=== PATIENT | female | born 1955 | race Caucasian/White ===

== ENCOUNTER 2020-05-06 11:40 | Observation (INO) ==
[2020-05-06] MEDS ORDERED: Ondansetron 4 MG/2 ML VIAL IVP ONE (11:56)
[2020-05-06 12:17] LABS: Basophils % 0.3 %; Eosinophils # 0.1 K/mcL (0.0-0.6); Eosinophils % 1.1 %; Hematocrit 40.3 % (35.3-44.9); Hemoglobin 12.7 g/dL (11.5-15.4); Immature Granulocytes % 0.3 % (0-4); Lymphocytes # 0.8 K/mcL (0.6-4.6); Lymphocytes % 10.8 %; Mean Corpuscular HGB Conc 31.5 g/dL (31.6-35.5); Mean Corpuscular Hemoglobin 28.5 pg (28.0-33.3); Mean Corpuscular Volume 90.4 fL (83.0-100.0); Monocytes # 0.4 K/mcL (0.0-1.3); Monocytes % 5.3 %; Neutrophils # 6.2 K/mcL (1.6-8.9); Platelet Count 220 K/mcL (140-400); Red Blood Count 4.46 M/mcL (3.82-4.97); Red Cell Distribution Width 12.9 % (11.5-14.5); Segmented Neutrophils % 82.2 %; White Blood Count 7.5 K/mcL (4.3-11.1)
[2020-05-06 12:26] LABS: INR 1.2; Prothrombin Time 13.3 Seconds (9.4-12.1)
[2020-05-06 12:29] LABS: Activated Partial Thrombo Time 30.5 Seconds (26.0-36.0)
[2020-05-06 12:37] LABS: BUN/Creatinine Ratio 17 (6-26); Blood Urea Nitrogen 20 mg/dL (8-23); Calcium 8.6 mg/dL (8.6-10.3); Carbon Dioxide 25 mEq/L (23-29); Chloride 103 mEq/L (98-107); Glucose 118 mg/dL (70-105); Lipase 7 Units/L (11-82); Osmolality,Calculated 288 (280-300); Potassium 3.7 mEq/L (3.5-5.1); Sodium 137 mEq/L (136-145); Troponin I < 0.03 ng/mL (< 0.04); eGFR For African Americans 56 (> 60); eGFR For Non-African Americans 46 (> 60)
[2020-05-06 13:12] LABS: Alanine Aminotransferase 13 Units/L (7-52); Albumin 4.3 g/dL (3.5-5.7); Albumin/Globulin Ratio 1.9 (1.1-2.2); Alkaline Phosphatase 87 Units/L (34-104); Aspartate Amino Transferase 23 Units/L (13-39); Bilirubin,Direct 0.1 mg/dL (0.0-0.2); Bilirubin,Indirect 0.6 mg/dL (0.0-1.0); Bilirubin,Total 0.7 mg/dL (0.3-1.0); Globulin 2.3 g/dL (2.4-3.5); Total Protein 6.6 g/dL (6.4-8.9)
[2020-05-06] MEDS ORDERED: Isovue-370 500 ML BOTTLE IVP ONE (13:16)
[2020-05-06] MEDS ORDERED: *HR* OxyCODONE Immed Rel 5 MG TABLET PO ONE (14:01)
[2020-05-06] MEDS ORDERED: 0.9 % Sodium Chloride 1,000 ML IVC ONE (15:01)
[2020-05-06] MEDS ORDERED: Prochlorperazine 10 MG/2 ML VIAL IVP PRN (17:12)
[2020-05-06] MEDS ORDERED: Perflutren Lipid Microsphere 1.3 ML in 0.9 % Sodium Chloride 8.7 ML IVP PRN (17:40)
[2020-05-06] MEDS ORDERED: Ondansetron 4 MG/2 ML VIAL IVP PRN (17:46)
[2020-05-06] MEDS ORDERED: Naloxone 0.4 MG/ML INJ IVP PRN (17:48)
[2020-05-06] MEDS ORDERED: 0.9 % Sodium Chloride 1,000 ML IVC SCH (18:45)
[2020-05-06] MEDS: *HR* Heparin 5,000 UNIT/ML VIAL SQ SCH (22:07)
[2020-05-07 01:06] LABS: Hematocrit 36.4 % (35.3-44.9); Hemoglobin 11.6 g/dL (11.5-15.4); Mean Corpuscular HGB Conc 31.9 g/dL (31.6-35.5); Mean Platelet Volume 11.2 fL (9.4-12.4); Platelet Count 204 K/mcL (140-400); Red Cell Distribution Width 12.9 % (11.5-14.5); White Blood Count 4.5 K/mcL (4.3-11.1)
[2020-05-07 01:24] LABS: % Iron Saturation 22 % (15-50); Iron 53 mcg/dL (50-170); Transferrin 171 mg/dL (203-362)
[2020-05-07 01:26] LABS: BUN/Creatinine Ratio 15 (6-26); Blood Urea Nitrogen 13 mg/dL (8-23); Calcium 8.2 mg/dL (8.6-10.3); Carbon Dioxide 23 mEq/L (23-29); Chloride 109 mEq/L (98-107); Chol/HDL Ratio 3.9 (0-4.9); Cholesterol 193 mg/dL (< 200); Glucose 88 mg/dL (70-105); HDL Cholesterol 49 mg/dL (40-59); LDL Cholesterol,Calculated 126 mg/dL (< 100); Magnesium 2.1 mg/dL (1.6-2.6); Osmolality,Calculated 292 (280-300); Potassium 3.5 mEq/L (3.5-5.1); Sodium 141 mEq/L (136-145); Triglycerides 89 mg/dL (< 150); eGFR For African Americans > 60 (> 60); eGFR For Non-African Americans > 60 (> 60)
[2020-05-07 01:46] LABS: Estimated Average Glucose 111 mg/dl; Hemoglobin A1C 5.5 %
[2020-05-07 03:09] LABS: Bilirubin,Urine Negative (Negative); Blood,Urine Negative (Negative); Clarity,Urine Clear (Clear); Color,Urine Light-Yellow (Yellow); Glucose,Urine (UA) Normal (Normal); Ketones,Urine 20 mg/dL (Negative); PH,Urine 5.5 pH Units (5.0-8.0); Protein,Urine Negative (Neg-Trace); Specific Gravity,Urine 1.021 (1.010-1.025)
[2020-05-07 03:10] LABS: Leukocyte Esterase,Urine Negative (Negative); Nitrite,Urine Negative (Negative); Urobilinogen,Urine Normal (Normal)
[2020-05-07] MEDS ORDERED: *HR* OxyCODONE Immed Rel 5 MG TABLET PO ONE (03:25)
[2020-05-07] MEDS: *HR* Heparin 5,000 UNIT/ML VIAL SQ SCH ×2 (05:12→15:08)
[2020-05-07] MEDS ORDERED: Regadenoson 0.4 MG/5 ML SYRINGE IVP ONE (06:10)
[2020-05-07] MEDS ORDERED: amLODIPine 5 MG TABLET PO SCH (11:30)
[2020-05-07] MEDS ORDERED: 0.9 % Sodium Chloride 1,000 ML IVC SCH (12:15)
[2020-05-07] MEDS ORDERED: 0.9 % Sodium Chloride 500 ML IVC ONE (12:15)
[2020-05-07] MEDS ORDERED: Isovue-370 500 ML BOTTLE IVP ONE (12:16)
[2020-05-07 13:15] LABS: Adenovirus F 40/41 PCR Not detected (Not detect); Astrovirus PCR Not detected (Not detect); C.difficile Toxin A/B Gene PCR Not detected (Not detect); Campylobacter by PCR Not detected (Not detect); Cryptosporidium by PCR Not detected (Not detect); Cyclospora cayetanensis PCR Not detected (Not detect); E. coli O157 by PCR Not detected (Not detect); Entamoeba histolytica PCR Not detected (Not detect); Enteroaggregative E.coli(EAEC) Not detected (Not detect); Enteropathogenic E.coli(EPEC) Not detected (Not detect); Enterotoxigenic E.coli (ETEC) Not detected (Not detect); Giardia lamblia PCR Not detected (Not detect); Norovirus GI/GII PCR Not detected (Not detect); Plesiomonas shigelloides PCR Not detected (Not detect); Rotavirus A PCR Not detected (Not detect); Salmonella PCR Not detected (Not detect); Sapovirus PCR Not detected (Not detect); Shig/EnteroinvasiveE coli EIEC Not detected (Not detect); Shigalike tox-prod E coli STEC Not detected (Not detect); Vibrio PCR Not detected (Not detect); Vibrio cholerae PCR Not detected (Not detect); Yersinia enterocolitica PCR Not detected (Not detect)
[2020-05-07 14:45] VITALS: BP 148/70
[2020-05-07] MEDS ORDERED: levoFLOXacin 750 MG TABLET PO ONE (15:54)
== END 2020-05-07 18:20 | disposition home or self-care (01) ==
LOC: 3ANU 11:40 → EMEROOARM 11:40 → SUATTDRO 15:51 → 3ANU 16:28
PROVIDERS: ADMIT General Practice; ATTEND Internal Medicine

== ENCOUNTER 2021-06-26 12:07 | Inpatient (IN) ==
[2021-06-26 13:12] LABS: Basophils % 0.4 %; Eosinophils # 0.1 K/mcL (0.0-0.6); Eosinophils % 1.6 %; Hemoglobin 12.5 g/dL (11.5-15.4); Immature Granulocytes % 0.2 % (0-4); Lymphocytes # 1.4 K/mcL (0.6-4.6); Lymphocytes % 28.1 %; Mean Corpuscular HGB Conc 32.1 g/dL (31.6-35.5); Mean Corpuscular Hemoglobin 29.3 pg (28.0-33.3); Mean Corpuscular Volume 91.5 fL (83.0-100.0); Mean Platelet Volume 10.9 fL (9.4-12.4); Monocytes # 0.3 K/mcL (0.0-1.3); Monocytes % 5.4 %; Neutrophils # 3.2 K/mcL (1.6-8.9); Platelet Count 269 K/mcL (140-400); Red Blood Count 4.26 M/mcL (3.82-4.97); Segmented Neutrophils % 64.3 %
[2021-06-26 13:39] LABS: BUN/Creatinine Ratio 18 (6-26); Blood Urea Nitrogen 21 mg/dL (8-23); Calcium 9.4 mg/dL (8.6-10.3); Carbon Dioxide 28 mEq/L (23-29); Chloride 105 mEq/L (98-107); Glucose 93 mg/dL (70-105); Osmolality,Calculated 293 (280-300); Potassium 4.4 mEq/L (3.5-5.1); Sodium 140 mEq/L (136-145); Troponin I < 0.03 ng/mL (< 0.04); eGFR For African Americans 55 (> 60); eGFR For Non-African Americans 45 (> 60)
[2021-06-26] MEDS ORDERED: Naloxone 0.4 MG/ML INJ IVP PRN (14:32)
[2021-06-26] MEDS ORDERED: Ondansetron 4 MG/2 ML VIAL IVP PRN (14:32)
[2021-06-26] MEDS ORDERED: Perflutren Lipid Microsphere 1.3 ML in 0.9 % Sodium Chloride 8.7 ML IVP PRN (14:39)
[2021-06-26] MEDS ORDERED: Albuterol 2.5 MG/3 ML NEBULIZER IH PRN (17:01)
[2021-06-26] MEDS ORDERED: Nitroglycerin 0.4 MG TAB.SUBL SL PRN (17:02)
[2021-06-26] MEDS ORDERED: Artificial Tears SOLN 15 ML BOTTLE BOTH EYES PRN (17:11)
[2021-06-26] MEDS ORDERED: *HR* LORazepam 2 MG/ML VIAL IVP ONE (22:04)
[2021-06-26] MEDS: Magnesium Oxide 400 MG TABLET PO SCH (22:28)
[2021-06-26] MEDS: gemfibroziL 600 MG TABLET PO SCH (22:29)
[2021-06-27 03:10] LABS: Basophils % 0.7 %; Eosinophils # 0.1 K/mcL (0.0-0.6); Eosinophils % 1.7 %; Hematocrit 38.2 % (35.3-44.9); Hemoglobin 12.4 g/dL (11.5-15.4); Immature Granulocytes % 0.2 % (0-4); Lymphocytes # 2.4 K/mcL (0.6-4.6); Lymphocytes % 40.3 %; Mean Corpuscular HGB Conc 32.5 g/dL (31.6-35.5); Mean Corpuscular Hemoglobin 29.2 pg (28.0-33.3); Mean Corpuscular Volume 89.9 fL (83.0-100.0); Mean Platelet Volume 11.1 fL (9.4-12.4); Monocytes # 0.5 K/mcL (0.0-1.3); Monocytes % 7.5 %; Platelet Count 299 K/mcL (140-400); Red Blood Count 4.25 M/mcL (3.82-4.97); Red Cell Distribution Width 12.7 % (11.5-14.5); Segmented Neutrophils % 49.6 %
[2021-06-27 03:35] LABS: BUN/Creatinine Ratio 19 (6-26); Blood Urea Nitrogen 21 mg/dL (8-23); Calcium 9.1 mg/dL (8.6-10.3); Carbon Dioxide 25 mEq/L (23-29); Chloride 105 mEq/L (98-107); Chol/HDL Ratio 3.8 (0-4.9); Cholesterol 230 mg/dL (< 200); Glucose 99 mg/dL (70-105); HDL Cholesterol 61 mg/dL (40-59); LDL Cholesterol,Calculated 146 mg/dL (< 100); Magnesium 2.2 mg/dL (1.6-2.6); Osmolality,Calculated 291 (280-300); Potassium 3.6 mEq/L (3.5-5.1); Sodium 139 mEq/L (136-145); Triglycerides 115 mg/dL (< 150); Troponin I < 0.03 ng/mL (< 0.04); eGFR For African Americans > 60 (> 60); eGFR For Non-African Americans 50 (> 60)
[2021-06-27] MEDS: *HR* Enoxaparin 40 MG/0.4 ML SYRINGE SQ SCH (06:31)
[2021-06-27] MEDS: gemfibroziL 600 MG TABLET PO SCH ×2 (09:50→21:21)
[2021-06-27 11:22] LABS: Estimated Average Glucose 120 mg/dl; Hemoglobin A1C 5.8 %
[2021-06-27] MEDS: Magnesium Oxide 400 MG TABLET PO SCH (21:22)
[2021-06-27] MEDS ORDERED: *HR* LORazepam 2 MG/ML VIAL IVP ONE (21:24)
[2021-06-28 01:59] LABS: Basophils % 0.4 %; Eosinophils # 0.1 K/mcL (0.0-0.6); Eosinophils % 1.8 %; Hematocrit 38.5 % (35.3-44.9); Hemoglobin 12.6 g/dL (11.5-15.4); Immature Granulocytes % 0.2 % (0-4); Lymphocytes # 2.1 K/mcL (0.6-4.6); Lymphocytes % 38.8 %; Mean Corpuscular HGB Conc 32.7 g/dL (31.6-35.5); Mean Corpuscular Hemoglobin 29.2 pg (28.0-33.3); Mean Corpuscular Volume 89.1 fL (83.0-100.0); Mean Platelet Volume 10.9 fL (9.4-12.4); Monocytes # 0.4 K/mcL (0.0-1.3); Monocytes % 6.4 %; Neutrophils # 2.9 K/mcL (1.6-8.9); Platelet Count 298 K/mcL (140-400); Red Blood Count 4.32 M/mcL (3.82-4.97); Red Cell Distribution Width 12.7 % (11.5-14.5); Segmented Neutrophils % 52.4 %; White Blood Count 5.5 K/mcL (4.3-11.1)
[2021-06-28 02:22] LABS: BUN/Creatinine Ratio 19 (6-26); Blood Urea Nitrogen 21 mg/dL (8-23); Calcium 9.2 mg/dL (8.6-10.3); Carbon Dioxide 27 mEq/L (23-29); Chloride 103 mEq/L (98-107); Glucose 92 mg/dL (70-105); Osmolality,Calculated 289 (280-300); Potassium 3.5 mEq/L (3.5-5.1); Sodium 138 mEq/L (136-145); eGFR For African Americans > 60 (> 60); eGFR For Non-African Americans 51 (> 60)
[2021-06-28] MEDS: *HR* Enoxaparin 40 MG/0.4 ML SYRINGE SQ SCH (05:21)
[2021-06-28] MEDS: gemfibroziL 600 MG TABLET PO SCH ×2 (07:56→19:52)
[2021-06-28] MEDS ORDERED: 0.9 % Sodium Chloride 2,000 ML ONE (08:33)
[2021-06-28] MEDS ORDERED: Heparin 1,000 UNITS/500 mL 500 ML ONE ×2 (08:33→08:52)
[2021-06-28] MEDS ORDERED: *HR* Heparin 10,000 UNIT/10 ML VIAL ONE (08:33)
[2021-06-28] MEDS ORDERED: Nitroglycerin 1,000 MCG/5 ML VIAL IV ONE (08:33)
[2021-06-28] MEDS ORDERED: ISOVUE-370 200 ML INFUS..BTL ONE (08:33)
[2021-06-28] MEDS ORDERED: *HR* Midazolam HCl 2 MG/2 ML VIAL ONE (09:25)
[2021-06-28] MEDS ORDERED: *HR* FentaNYL (PF) 100 MCG/2 ML VIAL ONE (09:25)
[2021-06-28] MEDS ORDERED: *HR* OxyCODONE Immed Rel 5 MG TABLET PO ONE (10:33)
[2021-06-28] MEDS: DilTIAZem CD (24hr) 120 MG CAP.ER.24H PO SCH (11:04)
[2021-06-28] MEDS: 0.9 % Sodium Chloride 1,000 ML IVC SCH ×2 (11:23→21:41)
[2021-06-28] MEDS: Magnesium Oxide 400 MG TABLET PO SCH (19:52)
[2021-06-28] MEDS ORDERED: *HR* LORazepam 2 MG/ML VIAL IVP ONE (20:07)
[2021-06-29] MEDS ORDERED: Acetaminophen 325 MG TABLET PO ONE (02:47)
[2021-06-29] MEDS: *HR* Enoxaparin 40 MG/0.4 ML SYRINGE SQ SCH (05:03)
[2021-06-29 06:36] LABS: BUN/Creatinine Ratio 17 (6-26); Blood Urea Nitrogen 18 mg/dL (8-23); Calcium 8.5 mg/dL (8.6-10.3); Carbon Dioxide 25 mEq/L (23-29); Chloride 108 mEq/L (98-107); Glucose 97 mg/dL (70-105); Osmolality,Calculated 290 (280-300); Sodium 139 mEq/L (136-145); eGFR For African Americans > 60 (> 60); eGFR For Non-African Americans 54 (> 60)
[2021-06-29 06:56] VITALS: BP 112/67; PULSE 58; TEMP 98.2; O2SAT 94
[2021-06-29] MEDS: DilTIAZem CD (24hr) 120 MG CAP.ER.24H PO SCH (08:14)
== END 2021-06-29 08:49 | disposition home or self-care (01) | DRG 287 ==
LOC: 3BNU 12:07 → EMEROOARM 12:07 → SUATTDRO 14:49 → 3BNU 15:45
PROVIDERS: ADMIT Pharmacist; ATTEND Internal Medicine